=== PATIENT | male | born 1985 | race Caucasian/White ===

== ENCOUNTER 2017-10-27 10:35 | Emergency (ER) | payer OTHER ==
[~2017-10-27] VITALS: Ht 175.3 cm; Wt 91.2 kg
[2017-10-27 10:43] VITALS: BP 141/67
--- NOTE | 2017-10-27 10:45 | NUR ---
PT AMBULATED TO ER CHAIR A
--- NOTE | 2017-10-27 10:48 | NUR ---
PT HERE FOR A RX REFILL, STATES HE TAKES PROTONIX 40MG BID FOR HIS GERD. DENIES ANY SYMPTOMS AT THIS TIME. IS GOING TO RUN OUT IN A WEEK, BUT DOESNT HAVE AN APPT WITH HIS MD UNTIL NEXT MONTH.
--- NOTE | 2017-10-27 10:50 | NUR ---
DR BROWN AT BEDSIDE
--- NOTE | 2017-10-27 11:15 | NUR ---
Patient discharged with v/s stable. Written and verbal after care instructions given and explained. Patient alert, oriented and verbalized understanding of instructions. Ambulatory with steady gait. All questions addressed prior to discharge. ID band removed. Patient advised to follow up with PMD. Rx of PROTONIX given. Patient educated on indication of medication including possible reaction and side effects. Opportunity to ask questions provided and answered.
== END 2017-10-27 11:15 | disposition home or self-care (01) ==
LOC: MED 10:35
DX: Z76.0 Encounter for issue of repeat prescription (principal); K21.9 Gastro-esophageal reflux disease without esophagitis
CPT/HCPCS: 99283

== ENCOUNTER 2017-11-09 07:17 | Emergency (ER) | payer OTHER ==
[~2017-11-09] VITALS: Ht 175.3 cm; Wt 96.8 kg
[2017-11-09 07:20] VITALS: BP 109/70
--- NOTE | 2017-11-09 07:29 | NUR ---
PT CAME TO ER FOR MEDICATION REFILL. DENIES N/V/D; SKIN IS PINK/WARM/DRY; AAOX4 WITH EVEN AND STEADY GAIT; LUNGS CLEAR BL; HR EVEN AND REGULAR; PT DENIES ANY FEVER, CP, SOB, OR COUGH AT THIS TIME; PATIENT STATES PAIN OF 0/10 AT THIS TIME; VSS; ER MD MADE AWARE OF PT STATUS.
[2017-11-09 07:58] VITALS: BP 109/70
--- NOTE | 2017-11-09 07:59 | NUR ---
Patient discharged with v/s stable. Written and verbal after care instructions given and explained. Patient alert, oriented and verbalized understanding of instructions. Ambulatory with steady gait. All questions addressed prior to discharge. ID band removed. Patient advised to follow up with PMD. Rx of WELLBUTRIN given. Patient educated on indication of medication including possible reaction and side effects. Opportunity to ask questions provided and answered.
== END 2017-11-09 07:59 | disposition home or self-care (01) ==
LOC: MED 07:17
DX: Z76.0 Encounter for issue of repeat prescription (principal); K21.9 Gastro-esophageal reflux disease without esophagitis
CPT/HCPCS: 99283

== ENCOUNTER 2018-01-14 07:30 | Emergency (ER) | payer OTHER ==
[~2018-01-14] VITALS: Ht 175.3 cm; Wt 90.7 kg
[2018-01-14 07:32] VITALS: BP 140/88
--- NOTE | 2018-01-14 07:38 | NUR ---
PT AMBULATED TO BED 8
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
--- NOTE | 2018-01-14 07:52 | NUR ---
DR STEVE AT BEDSIDE
[2018-01-14] MEDS ORDERED: fentaNYL 0.05 MG/ML VIAL IM ONE (08:00)
--- NOTE | 2018-01-14 08:29 | NUR ---
Patient discharged with v/s stable. Written and verbal after care instructions given and explained. Patient alert, oriented and verbalized understanding of instructions. Ambulatory with steady gait. All questions addressed prior to discharge. ID band removed. Patient advised to follow up with PMD. Rx of ROBAXIN/MOTRIN/TRAMADOL given. Patient educated on indication of medication including possible reaction and side effects. Opportunity to ask questions provided and answered.
[2018-01-14 08:32] VITALS: BP 126/79
== END 2018-01-14 08:29 | disposition home or self-care (01) ==
LOC: MED 07:30
DX: M54.42 Lumbago with sciatica, left side (principal); I10 Essential (primary) hypertension; K21.9 Gastro-esophageal reflux disease without esophagitis
CPT/HCPCS: 96372; 99283; J3010

== ENCOUNTER 2018-02-02 14:52 | Emergency (ER) | payer OTHER ==
[~2018-02-02] VITALS: Ht 175.3 cm; Wt 90.7 kg
[2018-02-02 15:06] VITALS: BP 124/70
--- NOTE | 2018-02-02 15:13 | NUR ---
PT TAKEN VIA WC TO BED 09
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
[2018-02-02] MEDS ORDERED: KETOROLAC 60 MG/2 ML VIAL IM ONE (16:05)
[2018-02-02 17:12] VITALS: BP 111/59
--- NOTE | 2018-02-02 17:12 | NUR ---
Patient discharged with v/s stable. Written and verbal after care instructions given and explained. Patient alert, oriented and verbalized understanding of instructions. Ambulatory with steady gait on crutches. All questions addressed prior to discharge. ID band removed. Patient advised to follow up with PMD. Rx of Naprosyn and Cephalexin given. Patient educated on indication of medication including possible reaction and side effects. Opportunity to ask questions provided and answered.
== END 2018-02-02 17:12 | disposition home or self-care (01) ==
LOC: MED 14:52
DX: M25.561 Pain in right knee (principal); L53.8 Other specified erythematous conditions; K21.9 Gastro-esophageal reflux disease without esophagitis; Z86.14 Personal history of Methicillin resistant Staphylococcus aureus infection
CPT/HCPCS: 29505; 73562; 96372; 99284; J1885

== ENCOUNTER 2020-06-14 17:39 | Emergency (ER) | payer SELFPAY ==
[~2020-06-14] VITALS: Ht 177.8 cm; Wt 93.0 kg
[2020-06-14 18:00] VITALS: BP 120/75
--- NOTE | 2020-06-14 18:06 | NUR ---
PT TAKEN TO BED 12.
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
--- NOTE | 2020-06-14 19:23 | NUR ---
RECEVIED REPORT FROM PREET DAUGHERTY. CONT OF CARE AT THIS TIME.
--- NOTE | 2020-06-14 19:23 | NUR ---
REPORT GAVE TO PREET HUERTA AND PREET POWELL. TX OF CARE AT THIS TIME.
--- NOTE | 2020-06-14 19:25 | NUR ---
REILLY CORCORAN ASSESSED AND EVALUATED PT. NO NURSING INTERVENTIONS NEEDED AT THIS TIME.
[2020-06-14 19:31] VITALS: BP 120/75
--- NOTE | 2020-06-14 19:31 | NUR ---
Patient discharged with v/s stable. Written and verbal after care instructions given and explained. Patient alert, oriented and verbalized understanding of instructions. Ambulatory with steady gait. All questions addressed prior to discharge. ID band removed. Patient advised to follow up with PMD. Rx of NORCO AND IBUPROFEN given. Patient educated on indication of medication including possible reaction and side effects. Opportunity to ask questions provided and answered.
== END 2020-06-14 19:31 | disposition home or self-care (01) ==
LOC: MED 17:39
DX: M54.2 Cervicalgia (principal); K21.9 Gastro-esophageal reflux disease without esophagitis; V49.9XXA Car occupant (driver) (passenger) injured in unspecified traffic accident, initial encounter; Y93.89 Activity, other specified; Y92.89 Other specified places as the place of occurrence of the external cause; Y99.8 Other external cause status
CPT/HCPCS: 99283